=== PATIENT | female | born 1990 | race Caucasian/White ===

== ENCOUNTER 2017-04-18 05:00 | Inpatient (IN) | payer BC ==
[~2017-04-18 05:00] MED LIST: Citric Acid/Sodium Citrate Solution 30 ML Cup PO SCH; Lactated Ringers 1,000 ML IV SCH; Metoclopramide 10 MG/2 ML SDV IVPUSH SCH; Oxytocin/Lactated Ringers 10 UNIT/1,000 ML BAG IV SCH; Sodium Chloride 0.9% 10 ML Syringe FLUSH PRN; ceFAZolin 2 GM in Premix Bag 1 BAG IV SCH
[2017-04-18] MEDS ORDERED: Morphine PF 1 MG/ML Amp ONE (06:43)
[2017-04-18] MEDS ORDERED: Bupivacaine 0.5% 30 ML SDV ONE (06:53)
--- NOTE | 2017-04-18 07:16 | PCM.OPNOTE ---
- General Post-Op/Procedure Note Date of Surgery/Procedure: 04/18/17 Operative Procedure(s): Repeat low transverse Findings: Minimal scar tissue between the rectus muscles and the fascia. Thin lower uterine segment noted with minimal scar tissue between the bladder and uterus. Baby girl in a cephalic presentation with APGARS of 8 & 9 and weight of 7 lbs 6 oz. Normal appearance of the uterus, ovaries, and fallopian tubes. Pre Op Diagnosis: History of x2 (very thin JESSIE at time of last c- section). 38 weeks gestation Post-Op Diagnosis: Same Anesthesia Technique: Spinal Primary Surgeon: Kalee Oropeza Secondary Surgeon: Bess Schmid Anesthesia Provider: Bev Monterroso Pathology: Cord blood collected. Placenta discarded. Fluid Replacement, Intraop: 2,500 Output, Urine Amount: 250 EBL in mLs: 600 Complications: None Condition: Good Free Text/Narrative:: The risks, benefits, indications, potential complications, and alternatives were explained to the patient and informed consent obtained. After induction of anesthesia, the patient was placed in a supine position and then draped and prepped in the usual sterile manner. A Pfannenstiel incision was made and carried down through the subcutaneous tissue to the fascia. Fascial incision was made and extended transversely. The fascia was from the underlying rectus tissue superiorly and inferiorly. The peritoneum was identified and entered. Peritoneal incision was extended longitudinally. The utero-vesical peritoneal reflection was incised transversely and the bladder flap was bluntly freed from the lower uterine segment. A low transverse uterine incision was made sharply with a scalpel and extended bluntly in a cephalocaudad direction. A baby girl was delivered from a cephalic presentation with APGARS as above. After the umbilical cord was clamped and cut cord blood was obtained for evaluation. The placenta was removed intact and appeared normal. The uterus was exteriorized and cleared of clots. The uterine outline, tubes and ovaries appeared normal. The uterine incision was closed with running locked sutures of 0 Vicryl. Hemostasis was noted and so second layer closure was deferred. The uterus was then placed back into the abdomen. The infracolic gutters were cleared of blood clots. The fascia was then reapproximated with running sutures of 0 Vicryl. The sucutaneous tissue was irrigated with sterile warm normal saline, hemostasis obtained with cautery. This layer was closed with a running 0 vicryl suture. The skin was reapproximated with running Subcuticular 4-0 monocryl sutures. Instrument, sponge, and needle counts were correct prior the abdominal closure and at the conclusion of the case.
[2017-04-18] MEDS ORDERED: ceFAZolin 1 GM Vial ONE (07:20)
[2017-04-18] MEDS ORDERED: Ketorolac 30 MG/ML SDV ONE (07:20)
[2017-04-18] MEDS ORDERED: Oxytocin 10 Units/1 ML SDV ONE (07:20)
[2017-04-18] MEDS ORDERED: Ondansetron 4 MG/2 ML SDV ONE (07:20)
--- NOTE | 2017-04-18 07:21 | PCM.PREANE ---
Preanesthetic Assessment - Anesthesia/Transfusion/Family Hx Anesthesia History: Prior Anesthesia Without Reaction Family History of Anesthesia Reaction: No Transfusion History: Prior Transfusion Without Reaction - Review of Systems General: No Symptoms Pulmonary: No Symptoms Cardiovascular: No Symptoms Gastrointestinal: No Symptoms Neurological: No Symptoms Other: Reports: None - Physical Assessment NPO Status Date: 04/17/17 NPO Status Time: 18:30 Respiratory Rate: 14 Vital Signs: Last Vital Signs Temp 37.1 C 04/18/17 05:18 Pulse 84 04/18/17 05:18 Resp 14 04/18/17 05:18 BP 116/70 04/18/17 05:18 Pulse Ox Height: 1.57 m Weight: 82.1 kg ASA Class: 2 Mental Status: Alert & Oriented x3 Airway Class: Mallampati = 2 Dentition: Reports: Normal Dentition Thyro-Mental Finger Breadths: 3 Mouth Opening Finger Breadths: 3 ROM/Head Extension: Full Lungs: Clear to Auscultation, Normal Respiratory Effort Cardiovascular: Regular Rate, Regular Rhythm - Lab Values: Laboratory Last Values WBC 9.49 K/mm3 (3.98-10.04) 04/18/17 05:43 RBC 3.94 M/mm3 (3.98-5.22) L 04/18/17 05:43 Hgb 11.8 gm/L (11.2-15.7) 04/18/17 05:43 Hct 35.9 % (34.1-44.9) 04/18/17 05:43 MCV 91.1 fl (79.4-94.8) 04/18/17 05:43 MCH 29.9 pg (25.6-32.2) 04/18/17 05:43 MCHC 32.9 g/dl (32.2-35.5) 04/18/17 05:43 RDW Std Deviation 45.0 fL (36.4-46.3) 04/18/17 05:43 Plt Count 161 K/mm3 (182-369) L 04/18/17 05:43 MPV 10.6 fl (9.4-12.3) 04/18/17 05:43 Neut % (Auto) 68.2 % (34.0-71.1) 04/18/17 05:43 Lymph % (Auto) 23.2 % (19.3-51.7) 04/18/17 05:43 Mcdowell % (Auto) 7.2 % (4.7-12.5) 04/18/17 05:43 Eos % (Auto) 0.5 (0.7-5.8) L 04/18/17 05:43 Baso % (Auto) 0.3 % (0.1-1.2) 04/18/17 05:43 Neut # (Auto) 6.47 K/mm3 (1.56-6.13) H 04/18/17 05:43 Lymph # (Auto) 2.20 K/mm3 (1.18-3.74) 04/18/17 05:43 Mcdowell # (Auto) 0.68 K/mm3 (0.24-0.36) H 04/18/17 05:43 Eos # (Auto) 0.05 K/mm3 (0.04-0.36) 04/18/17 05:43 Baso # (Auto) 0.03 K/mm3 (0.01-0.08) 04/18/17 05:43 Blood Type A POSITIVE 04/18/17 05:43 Gel Antibody Screen Negative 04/18/17 05:43 - Allergies Allergies/Adverse Reactions: Allergies Allergy/AdvReac Type Severity Reaction Status Date / Time No Known Allergies Allergy Verified 04/18/17 05:27 - Blood Blood Available: No Product(s) Available: None - Anesthesia Plan Pre-Op Medication Ordered: Antacids - Acknowledgements Anesthesia Type Planned: Spinal Pt an Appropriate Candidate for the Planned Anesthesia: Yes Alternatives and Risks of Anesthesia Discussed w Pt/Guardian: Yes Pt/Guardian Understands and Agrees with Anesthesia Plan: Yes PreAnesthesia Questionnaire Cardiovascular History: Reports: None Other Cardiovascular History: 4+ bilateral lower extrem. edema thru-out 3 trimester Respiratory History: Reports: None Gastrointestinal History: Reports: GERD Other Gastrointestinal History: TUMS is effective for s/s. 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 Both times required blood transfusion. Musculoskeletal History: Reports: Other (See Below) Other Musculoskeletal History: C/O of low back pain radiating to her coccyx. Recent fall which she was seen in OB for and cleared. Neurological History: Reports: Concussion, Migraines, Other (See Below) Other Neuro History: Had a concussion in her youth. Experienced a severe migraine in May 2016, which was thought to be a CVA, and was flown to [place] for evaluation. Was found not to be a CVA. Uses Imitrex for migraine when not and denies having experienced any migraine MARTINEZ during this . Psychiatric History: Reports: None Hematologic History: Reports: Blood Transfusion(s) Other Hematologic History: Severe PP hemorrhage with her repeat C/S following failed TOLAC in 2015, and in 2013 had hemoperitoneum evacuation post Primary C/ S. Both times required blood transfusion. Immunologic History: Reports: None Dermatologic History: Reports: None - Infectious Disease History Infectious Disease History: Reports: None - Past Surgical History Cardiovascular Surgical History: Reports: None Respiratory Surgical History: Reports: None GI Surgical History: Reports: None Neurological Surgical History: Reports: None Dermatological Surgical History: Reports: None - SUBSTANCE USE Smoking Status *Q: Never Smoker Tobacco Use Within Last Twelve Months: No Second Hand Smoke Exposure: No Recreational Drug Use History: No - CURRENT (IN HOUSE) MEDS Current Meds: Current Medications Citric Acid/Sodium Citrate (Bicitra Solution) 30 ml PO .ONETIME [facility] Cefazolin Sodium/Dextrose 2 gm (/ Premix) 50 mls @ 100 mls/hr IV .ONETIME [facility] Lactated Ringer's (Ringers, Lactated) 1,000 mls @ 125 mls/hr IV ASDIRECTED [facility] Oxytocin/Lactated Ringer's (Pitocin In Lr 10 Units/1,000 Ml) 10 unit in 1,000 mls @ 100 mls/hr IV ASDIRECTED [facility] Metoclopramide HCl (Reglan) 10 mg IVPUSH .ONETIME [facility] Sodium Chloride (Saline Flush) 10 ml FLUSH ASDIRECTED PRN PRN Reason: Keep Vein Open Discontinued Medications Bupivacaine HCl (Marcaine 0.5%) Confirm Administered Dose 30 ml .ROUTE .[facility]-MED ONE Stop: 04/18/17 06:54 Cefazolin Sodium (Ancef) Confirm Administered Dose 2 gm .ROUTE .[facility]-MED ONE Stop: 04/18/17 07:21 Ketorolac Tromethamine (Toradol) Confirm Administered Dose 30 mg .ROUTE .[facility]- MED ONE Stop: 04/18/17 07:21 Morphine Sulfate (Duramorph Pf) Confirm Administered Dose 1 mg .ROUTE .[facility]-MED ONE Stop: 04/18/17 06:44 Ondansetron HCl (Zofran) Confirm Administered Dose 4 mg .ROUTE .[facility]-MED ONE Stop: 04/18/17 07:21 Oxytocin (Pitocin) Confirm Administered Dose 10 unit .ROUTE .[facility]-MED ONE Stop: 04/18/17 07:21
[2017-04-18] MEDS ORDERED: Phenylephrine/Normal Saline 100 MCG/ML 10 ML Syringe ONE (08:12)
[2017-04-18] MEDS ORDERED: ePHEDrine 50 MG/ML SDV ONE (08:34)
[2017-04-18] MEDS ORDERED: Lactated Ringers 1,000 ML ONE ×2 (08:34→11:13)
[2017-04-18] MEDS ORDERED: Ondansetron 4 MG/2 ML SDV IVPUSH PRN (08:58)
[2017-04-18] MEDS ORDERED: diphenhydrAMINE 50 MG/ML SDV IVPUSH PRN ×2 (08:58→10:58)
[2017-04-18] MEDS ORDERED: fentaNYL 100 MCG/2 ML SDV IVPUSH PRN (08:58)
--- NOTE | 2017-04-18 08:58 | PCM.POSTAN ---
POST ANESTHESIA ASSESSMENT - MENTAL STATUS Mental Status: Alert, Oriented - VITAL SIGNS Pulse Rate: 77 SaO2: 100 Resp Rate: 15 Blood Pressure: 98/62 Temperature: 36.4 C - RESPIRATORY Respiratory Status: Respiratory Rate WNL, Airway Patent, O2 Saturation Stable, Supplemental Oxygen - CARDIOVASCULAR CV Status: Pulse Rate WNL, Blood Pressure Stable - GASTROINTESTINAL GI Status: No Symptoms - PAIN Pain Score: 0 - POST OP HYDRATION Hydration Status: Adequate & Stable
[2017-04-18] MEDS ORDERED: Sodium Chloride 0.9% 10 ML Syringe FLUSH PRN (10:58)
[2017-04-18] MEDS ORDERED: Docusate Sodium 100 MG Cap PO PRN (10:58)
[2017-04-18] MEDS ORDERED: Lanolin 100% Cream 7 GM Tube TOP PRN (10:58)
[2017-04-18] MEDS ORDERED: Naloxone 0.4 MG/ML SDV IVPUSH PRN (10:58)
[2017-04-18] MEDS ORDERED: Dextrose 5%-Lactated Ringers 1,000 ML IV SCH (10:58)
[2017-04-18] MEDS ORDERED: Methylergonovine 0.2 MG/1 ML Amp ONE (11:10)
[2017-04-18] MEDS ORDERED: Sodium Chloride 0.9% 1,000 ML ONE (11:15)
[2017-04-18] MEDS ORDERED: Morphine 2 MG/ML Syringe ONE (11:43)
[2017-04-18] MEDS ORDERED: Misoprostol 200 MCG Tab ONE (11:49)
[2017-04-18] MEDS ORDERED: Misoprostol 200 MCG Tab PO STA (11:57)
[2017-04-18] MEDS ORDERED: ceFAZolin 1 GM in Premix Bag 1 BAG IV ONE (11:57)
--- NOTE | 2017-04-18 11:58 | PCM.SN ---
- Free Text/Narrative Note: 1130 Called by nursing at 1110 due to large amount of bleeding with fundal massage. Up to that time bleeding had been scant. With this bleeding episode patient dropped BP to 80/40's and feeling symptomatic. Presented immediately to L&D. Nursing working on 2nd IV site and hanging 1L of LR. Patient started on 2nd bag of pitocin and IM methergine ordered. Several sweeps of the lower uterine segment showed a moderate amount of clot. Cervix only about 3-4 cm dilated. Patient given dose of Ancef for this exploration and also 2 mg of IV morphine to aid in discomfort. Still with a small amount of clot and so given an additional 600 mcg of buccal cytotec. Eventually bleeding did respond to these interventions. Plan for q4 hour IM methergine. Labs ordered now. As long as stable will repeat again in AM. Laboratory Last Values WBC 18.05 K/mm3 (3.98-10.04) H 04/18/17 11:25 RBC 3.08 M/mm3 (3.98-5.22) L 04/18/17 11:25 Hgb 9.3 gm/L (11.2-15.7) L 04/18/17 11:25 Hct 28.6 % (34.1-44.9) L 04/18/17 11:25 MCV 92.9 fl (79.4-94.8) 04/18/17 11:25 MCH 30.2 pg (25.6-32.2) 04/18/17 11:25 MCHC 32.5 g/dl (32.2-35.5) 04/18/17 11:25 RDW Std Deviation 45.0 fL (36.4-46.3) 04/18/17 11:25 Plt Count 167 K/mm3 (182-369) L 04/18/17 11:25 MPV 10.9 fl (9.4-12.3) 04/18/17 11:25 Neut % (Auto) 80.7 % (34.0-71.1) H 04/18/17 11:25 Lymph % (Auto) 13.4 % (19.3-51.7) L 04/18/17 11:25 Sterling % (Auto) 5.5 % (4.7-12.5) 04/18/17 11:25 Eos % (Auto) 0.1 (0.7-5.8) L 04/18/17 11:25 Baso % (Auto) 0.1 % (0.1-1.2) 04/18/17 11:25 Neut # (Auto) 14.57 K/mm3 (1.56-6.13) H 04/18/17 11:25 Lymph # (Auto) 2.42 K/mm3 (1.18-3.74) 04/18/17 11:25 Sterling # (Auto) 1.00 K/mm3 (0.24-0.36) H 04/18/17 11:25 Eos # (Auto) 0.01 K/mm3 (0.04-0.36) L 04/18/17 11:25 Baso # (Auto) 0.01 K/mm3 (0.01-0.08) 04/18/17 11:25 PT 10.7 SECONDS (8.0-13.0) 04/18/17 11:25 INR 0.98 04/18/17 11:25 APTT 25 SECONDS (22-36) 04/18/17 11:25 Fibrinogen 208.5 mg/dL (200-400) 04/18/17 11:25 Blood Type A POSITIVE 04/18/17 05:43 Gel Antibody Screen Negative 04/18/17 05:43
[2017-04-18] MEDS ORDERED: Morphine 2 MG/ML Syringe IVPUSH ONE (12:09)
[2017-04-18] MEDS ORDERED: Ketorolac 30 MG/ML SDV IVPUSH SCH (13:30)
[2017-04-18] MEDS: Methylergonovine 0.2 MG/1 ML Amp IM SCH ×3 (13:31→19:54)
--- NOTE | 2017-04-18 13:31 | PCM48HPAN ---
Post Anesthesia Note - EVALUATION WITHIN 48HRS OF ANESTHETIC Vital Signs in Normal Range: Yes Patient Participated in Evaluation: Yes Respiratory Function Stable: Yes Airway Patent: Yes Cardiovascular Function Stable: Yes Hydration Status Stable: Yes Pain Control Satisfactory: Yes Nausea and Vomiting Control Satisfactory: Yes Mental Status Recovered: Yes
--- NOTE | 2017-04-18 20:04 | PCM.SN ---
- Free Text/Narrative Note: 1400 Called by nursing due to concern for fundal deviation. Bleeding remains scant/ appropriate. Vaginal exam done by me with little if any clot in lower uterine segment. Uterus seems firm and deep in pelvis/below uterus. Patient with excellent UOP since last present. Continue plan as previously outlined. Kalee Oropeza MD
[2017-04-18] MEDS: Simethicone 80 MG Tab.Chew PO PRN (20:10)
--- NOTE | 2017-04-18 20:10 | PCM.SN ---
- Free Text/Narrative Note: 1929 Patient doing well. Was up and walking with nurses at shift change and did well with that. Minimal complaints of dizziness/lightheadedness. Will order CBC in AM. UOP 750 cc/hr. Kalee Oropeza MD
[2017-04-18] MEDS: Acetaminophen/oxyCODONE 325-5 MG Tab PO PRN (21:44)
[2017-04-19] MEDS: Methylergonovine 0.2 MG/1 ML Amp IM SCH ×2 (00:18→04:04)
[2017-04-19] MEDS: Simethicone 80 MG Tab.Chew PO PRN ×4 (04:02→21:47)
[2017-04-19] MEDS: Acetaminophen/oxyCODONE 325-5 MG Tab PO PRN ×5 (04:03→21:50)
--- NOTE | 2017-04-19 07:10 | PCM.PNPP ---
- General Info Date of Service: 04/19/17 Functional Status: Reports: Pain Controlled, Tolerating Diet, Ambulating - Review of Systems General: Reports: No Symptoms Pulmonary: Reports: No Symptoms Cardiovascular: Reports: No Symptoms Gastrointestinal: Reports: Abdominal Pain Genitourinary: Reports: No Symptoms Musculoskeletal: Reports: No Symptoms Neurological: Reports: No Symptoms - Patient Data Vital Signs - Most Recent: Last Vital Signs Temp 36.8 C 04/19/17 00:10 Pulse 88 04/19/17 00:10 Resp 14 04/19/17 03:00 BP 108/54 L 04/19/17 00:10 Pulse Ox 98 04/19/17 03:00 Weight - Most Recent: 82.1 kg I&O - Last 24 Hours: Intake & Output 04/18/17 04/19/17 04/19/17 22:59 06:59 14:59 Intake Total 2500 Output Total 2035 900 Balance 465 -900 Lab Results - Last 24 Hours: Laboratory Results - last 24 hr 04/18/17 04/18/17 04/19/17 Range/Units 11:25 11:25 06:15 WBC 18.05 H 12.61 H (3.98-10.04) K/mm3 RBC 3.08 L 2.69 L (3.98-5.22) M/mm3 Hgb 9.3 L 8.1 L (11.2-15.7) gm/L Hct 28.6 L 25.4 L (34.1-44.9) % MCV 92.9 94.4 (79.4-94.8) fl MCH 30.2 30.1 (25.6-32.2) pg MCHC 32.5 31.9 L (32.2-35.5) g/dl RDW Std Deviation 45.0 46.3 (36.4-46.3) fL Plt Count 167 L 131 L (182-369) K/mm3 MPV 10.9 11.1 (9.4-12.3) fl Neut % (Auto) 80.7 H (34.0-71.1) % Lymph % (Auto) 13.4 L (19.3-51.7) % Angelina % (Auto) 5.5 (4.7-12.5) % Eos % (Auto) 0.1 L (0.7-5.8) Baso % (Auto) 0.1 (0.1-1.2) % Neut # (Auto) 14.57 H (1.56-6.13) K/mm3 Lymph # (Auto) 2.42 (1.18-3.74) K/mm3 Angelina # (Auto) 1.00 H (0.24-0.36) K/mm3 Eos # (Auto) 0.01 L (0.04-0.36) K/mm3 Baso # (Auto) 0.01 (0.01-0.08) K/mm3 PT 10.7 (8.0-13.0) SECONDS INR 0.98 APTT 25 (22-36) SECONDS Fibrinogen 208.5 (200-400) mg/dL Med Orders - Current: Current Medications Diphenhydramine HCl (Benadryl) 25 mg IVPUSH Q6H PRN PRN Reason: itching Diphenhydramine HCl (Benadryl) 25 mg IVPUSH Q6H PRN PRN Reason: Itching or Nausea Docusate Sodium (Colace) 100 mg PO Q12H PRN PRN Reason: Constipation Emollient Ointment (Lansinoh Hpa) 0 gm TOP ASDIRECTED PRN PRN Reason: Sore Nipples Fentanyl (Sublimaze) 50 mcg IVPUSH Q5M PRN PRN Reason: pain Naloxone HCl (Narcan) 0.1 mg IVPUSH SEECOMMENT PRN PRN Reason: Respiratory Depression Ondansetron HCl (Zofran) 4 mg IVPUSH ONETIME PRN PRN Reason: Nausea/Vomiting Oxycodone/Acetaminophen (Percocet 325-5 Mg) 2 tab PO Q4H PRN PRN Reason: Pain (moderate 4-6) Last Admin: 04/19/17 04:03 Dose: 2 tab Simethicone (Simethicone) 80 mg PO Q4H PRN PRN Reason: Gas Last Admin: 04/19/17 04:02 Dose: 80 mg Sodium Chloride (Saline Flush) 10 ml FLUSH ASDIRECTED PRN PRN Reason: Keep Vein Open Discontinued Medications Bupivacaine HCl (Marcaine 0.5%) Confirm Administered Dose 30 ml .ROUTE .STK-MED ONE Stop: 04/18/17 06:54 Cefazolin Sodium (Ancef) Confirm Administered Dose 2 gm .ROUTE .[facility]-MED ONE Stop: 04/18/17 07:21 Citric Acid/Sodium Citrate (Bicitra Solution) 30 ml PO .[facility] Last Admin: 04/18/17 07:30 Dose: 30 ml Ephedrine Sulfate (Ephedrine Sulfate) Confirm Administered Dose 50 mg .ROUTE .[facility] ONE Stop: 04/18/17 08:35 Cefazolin Sodium/Dextrose 2 gm (/ Premix) 50 mls @ 100 mls/hr IV .ONETIME [facility] Lactated Ringer's (Ringers, Lactated) 1,000 mls @ 125 mls/hr IV ASDIRECTED [facility] Oxytocin/Lactated Ringer's (Pitocin In Lr 10 Units/1,000 Ml) 10 unit in 1,000 mls @ 100 mls/hr IV ASDIRECTED [facility] Last Admin: 04/18/17 11:00 Dose: 100 mls/hr Lactated Ringer's (Ringers, Lactated) Confirm Administered Dose 1,000 mls @ as directed .ROUTE .[facility] ONE Stop: 04/18/17 08:35 Dextrose/Lactated Ringer's (Dextrose 5%-Lactated Ringers) 1,000 mls @ 125 mls/ hr IV ASDIRECTED [facility] Stop: 04/18/17 18:57 Last Admin: 04/18/17 13:25 Dose: 125 mls/hr Lactated Ringer's (Ringers, Lactated) Confirm Administered Dose 1,000 mls @ as directed .ROUTE .[facility] ONE Stop: 04/18/17 11:14 Last Admin: 04/18/17 11:15 Dose: 1,000 ml Sodium Chloride (Normal Saline) Confirm Administered Dose 1,000 mls @ as directed .ROUTE .[facility]-MED ONE Stop: 04/18/17 11:16 Last Admin: 04/18/17 15:31 Dose: 1,000 ml Cefazolin Sodium/Dextrose 1 gm (/ Premix) 50 mls @ 100 mls/hr IV ONETIME ONE Stop: 04/18/17 12:26 Last Admin: 04/18/17 12:07 Dose: 100 mls/hr Cefazolin Sodium/Dextrose (Ancef) Confirm Administered Dose 50 mls @ as directed .ROUTE .[facility] ONE Stop: 04/18/17 11:56 Last Admin: 04/18/17 12:16 Dose: Not Given Ibuprofen (Motrin) 600 mg PO Q6H PRN PRN Reason: mild pain or fever Ketorolac Tromethamine (Toradol) Confirm Administered Dose 30 mg .ROUTE .[facility]- MED ONE Stop: 04/18/17 07:21 Ketorolac Tromethamine (Toradol) 30 mg IVPUSH Q6H [facility] Stop: 04/19/17 01:31 Methylergonovine Maleate (Methergine) Confirm Administered Dose 0.2 mg .ROUTE .STK-MED ONE Stop: 04/18/17 11:11 Last Admin: 04/18/17 11:15 Dose: 0.2 mg Methylergonovine Maleate (Methergine) 0.2 mg IM Q4H [facility] Stop: 04/19/17 08:01 Last Admin: 04/19/17 04:04 Dose: 0.2 mg Metoclopramide HCl (Reglan) 10 mg IVPUSH .ONETIME [facility] Last Admin: 04/18/17 07:31 Dose: 10 mg Misoprostol (Cytotec) Confirm Administered Dose 600 mcg .ROUTE .STK-MED ONE Stop: 04/18/17 11:50 Last Admin: 04/18/17 11:52 Dose: 600 mcg Misoprostol (Cytotec) 600 mcg PO NOW STA Stop: 04/18/17 11:58 Last Admin: 04/18/17 12:15 Dose: Not Given Morphine Sulfate (Duramorph Pf) Confirm Administered Dose 1 mg .ROUTE .STK-MED ONE Stop: 04/18/17 06:44 Morphine Sulfate (Morphine) Confirm Administered Dose 2 mg .ROUTE .STK-MED ONE Stop: 04/18/17 11:44 Last Admin: 04/18/17 12:08 Dose: 2 mg Morphine Sulfate (Morphine) 2 mg IVPUSH ONETIME ONE Stop: 04/18/17 12:10 Last Admin: 04/18/17 13:32 Dose: Not Given Ondansetron HCl (Zofran) Confirm Administered Dose 4 mg .ROUTE .STK-MED ONE Stop: 04/18/17 07:21 Oxytocin (Pitocin) Confirm Administered Dose 10 unit .ROUTE .STK-MED ONE Stop: 04/18/17 07:21 Phenylephrine HCl (Phenylephrine In Ns 100 Mcg/Ml) Confirm Administered Dose 1 mg .ROUTE .STK-MED ONE Stop: 04/18/17 08:13 Phytonadione (Aquamephyton) Confirm Administered Dose 1 mg .ROUTE .STK-MED ONE Stop: 04/18/17 07:14 Last Admin: 04/18/17 17:17 Dose: Not Given Sodium Chloride (Saline Flush) 10 ml FLUSH ASDIRECTED PRN PRN Reason: Keep Vein Open - Infant Interaction Infant Disposition, : [place] in Room with Family Infant Interaction: Holding Infant Feeding: Breastfed ; Nursed Well Support Person: - Recovery Exam Fundal Tone: Firm Fundal Level: 1 Fingerbreadths Below Umbilicus Fundal Placement: Midline Lochia Amount: Small Lochia Color: Rubra/Red Perineum Description: Intact, Minimal Bruising/Swelling Episiotomy/Laceration: None Bladder Status: Indwelling Catheter in Place Urinary Elimination: Indwelling Catheter - Exam General: Alert, Oriented, Cooperative Lungs: Clear to Auscultation, Normal Respiratory Effort Cardiovascular: Regular Rate, Regular Rhythm GI/Abdominal Exam: Soft, Tender (appropriate) Extremities: Normal Inspection Skin: Warm, Dry, Intact Wound/Incisions: Dressing Dry and Intact - Problem List & Annotations (1) History of SNOMED Code(s): 312897203 Code(s): Z98.891 - HISTORY OF UTERINE SCAR FROM PREVIOUS SURGERY Status: Acute Current Visit: Yes (2) S/P repeat low transverse SNOMED Code(s): 168315083, 726206127, 652506750 Code(s): Z98.891 - HISTORY OF UTERINE SCAR FROM PREVIOUS SURGERY Status: Acute Current Visit: Yes (3) Delayed hemorrhage SNOMED Code(s): 63791388 Code(s): O72.2 - DELAYED AND SECONDARY HEMORRHAGE Status: Acute Current Visit: Yes - Problem List Review Problem List Initiated/Reviewed/Updated: Yes - My Orders Last 24 Hours: My Active Orders 04/18/17 10:58 Activity as Tolerated [RC] .Routine Antiembolic Devices [RC] PER UNIT ROUTINE Communication Order [RC] PER UNIT ROUTINE Communication Order [RC] PER UNIT ROUTINE Intake and Output [RC] Q4H May Shower [RC] PER UNIT ROUTINE Notify Provider Intake and Out [RC] ASDIRECTED Vital Signs [RC] Q1HR Acetaminophen/oxyCODONE [Percocet 325-5 MG] 2 tab PO Q4H PRN Docusate Sodium [Colace] 100 mg PO Q12H PRN Lanolin [Lansinoh HPA] See Dose Instructions TOP ASDIRECTED PRN Naloxone [Narcan] 0.1 mg IVPUSH SEECOMMENT PRN Sodium Chloride 0.9% [Saline Flush] 10 ml FLUSH ASDIRECTED PRN diphenhydrAMINE [Benadryl] 25 mg IVPUSH Q6H PRN Assess Lochia [WOMSER] Per Unit Routine Assess Uterine Involution [WOMSER] Per Unit Routine Breast Pump [WOMSER] Per Unit Routine Heat Therapy [OM.PC] Per Unit Routine Saline Lock Insert [OM.PC] Routine Sequential Compression Device [OM.PC] Per Unit Routine 04/18/17 19:57 Simethicone 80 mg PO Q4H PRN 04/18/17 Breakfast Regular Diet [DIET] 04/19/17 08:52 Urinary Catheter Removal [RC] Per Unit Routine - Assessment Assessment:: 26 y/o G6 now [id number] POD#1 from [facility] at 38 0/7 wks - Plan Plan:: Post op * hemorrhage yesterday about 4 hours after delivery. Blood count 8.1 today. S/p 20 hours of methergine. Will continue to monitor closely. * Remove elder this AM * Routine cares * Encourage breast feeding * Discharge pending clinic course
[2017-04-19] MEDS ORDERED: Ibuprofen 600 MG Tab PO PRN (07:30)
--- NOTE | 2017-04-19 08:56 | PCM48HPAN ---
Post Anesthesia Note - EVALUATION WITHIN 48HRS OF ANESTHETIC Vital Signs in Normal Range: Yes Patient Participated in Evaluation: Yes Respiratory Function Stable: Yes Airway Patent: Yes Cardiovascular Function Stable: Yes Hydration Status Stable: Yes Pain Control Satisfactory: Yes Nausea and Vomiting Control Satisfactory: Yes Mental Status Recovered: Yes - COMMENTS/OBSERVATIONS Free Text/Narrative:: Patient presents with some pallor and c/o referring shoulder pain. Otherwise stabilizing well and resting comfortably.
[2017-04-19] MEDS: Ibuprofen 600 MG Tab PO PRN (16:24)
[2017-04-20] MEDS: Ibuprofen 600 MG Tab PO PRN (01:32)
[2017-04-20] MEDS: Simethicone 80 MG Tab.Chew PO PRN ×2 (06:36→10:36)
[2017-04-20] MEDS: Acetaminophen/oxyCODONE 325-5 MG Tab PO PRN ×2 (06:37→10:36)
--- NOTE | 2017-04-20 07:21 | PCM.PNPP ---
- General Info Date of Service: 04/20/17 Functional Status: Reports: Pain Controlled, Tolerating Diet, Ambulating, Urinating - Review of Systems General: Reports: No Symptoms Pulmonary: Reports: No Symptoms Cardiovascular: Reports: No Symptoms Gastrointestinal: Reports: Abdominal Pain (managed with medications ) Genitourinary: Reports: No Symptoms Musculoskeletal: Reports: Shoulder Pain (right side) Neurological: Reports: No Symptoms - Patient Data Vital Signs - Most Recent: Last Vital Signs Temp 36.3 C 04/20/17 04:00 Pulse 80 04/20/17 04:00 Resp 15 04/20/17 04:00 BP 97/52 L 04/20/17 04:00 Pulse Ox 99 04/20/17 04:00 Weight - Most Recent: 82.1 kg I&O - Last 24 Hours: Intake & Output 04/19/17 04/20/17 04/20/17 22:59 06:59 14:59 Intake Total 300 Output Total 1050 Balance -750 Med Orders - Current: Current Medications Diphenhydramine HCl (Benadryl) 25 mg IVPUSH Q6H PRN PRN Reason: itching Diphenhydramine HCl (Benadryl) 25 mg IVPUSH Q6H PRN PRN Reason: Itching or Nausea Docusate Sodium (Colace) 100 mg PO Q12H PRN PRN Reason: Constipation Last Admin: 04/19/17 08:18 Dose: 100 mg Emollient Ointment (Lansinoh Hpa) 0 gm TOP ASDIRECTED PRN PRN Reason: Sore Nipples Fentanyl (Sublimaze) 50 mcg IVPUSH Q5M PRN PRN Reason: pain Ibuprofen (Motrin) 600 mg PO Q6H PRN PRN Reason: Pain Last Admin: 04/20/17 01:32 Dose: 600 mg Naloxone HCl (Narcan) 0.1 mg IVPUSH SEECOMMENT PRN PRN Reason: Respiratory Depression Ondansetron HCl (Zofran) 4 mg IVPUSH ONETIME PRN PRN Reason: Nausea/Vomiting Oxycodone/Acetaminophen (Percocet 325-5 Mg) 2 tab PO Q4H PRN PRN Reason: Pain (moderate 4-6) Last Admin: 04/20/17 06:37 Dose: 2 tab Simethicone (Simethicone) 80 mg PO Q4H PRN PRN Reason: Gas Last Admin: 04/20/17 06:36 Dose: 80 mg Sodium Chloride (Saline Flush) 10 ml FLUSH ASDIRECTED PRN PRN Reason: Keep Vein Open Discontinued Medications Bupivacaine HCl (Marcaine 0.5%) Confirm Administered Dose 30 ml .ROUTE .[facility] ONE Stop: 04/18/17 06:54 Cefazolin Sodium (Ancef) Confirm Administered Dose 2 gm .ROUTE .[facility] ONE Stop: 04/18/17 07:21 Citric Acid/Sodium Citrate (Bicitra Solution) 30 ml PO .ONETIME [facility] Last Admin: 04/18/17 07:30 Dose: 30 ml Ephedrine Sulfate (Ephedrine Sulfate) Confirm Administered Dose 50 mg .ROUTE .[facility] ONE Stop: 04/18/17 08:35 Cefazolin Sodium/Dextrose 2 gm (/ Premix) 50 mls @ 100 mls/hr IV .ONETIME [facility] Lactated Ringer's (Ringers, Lactated) 1,000 mls @ 125 mls/hr IV ASDIRECTED [facility] Oxytocin/Lactated Ringer's (Pitocin In Lr 10 Units/1,000 Ml) 10 unit in 1,000 mls @ 100 mls/hr IV ASDIRECTED [facility] Last Admin: 04/18/17 11:00 Dose: 100 mls/hr Lactated Ringer's (Ringers, Lactated) Confirm Administered Dose 1,000 mls @ as directed .ROUTE .[facility] ONE Stop: 04/18/17 08:35 Dextrose/Lactated Ringer's (Dextrose 5%-Lactated Ringers) 1,000 mls @ 125 mls/ hr IV ASDIRECTED [facility] Stop: 04/18/17 18:57 Last Admin: 04/18/17 13:25 Dose: 125 mls/hr Lactated Ringer's (Ringers, Lactated) Confirm Administered Dose 1,000 mls @ as directed .ROUTE .[facility] ONE Stop: 04/18/17 11:14 Last Admin: 04/18/17 11:15 Dose: 1,000 ml Sodium Chloride (Normal Saline) Confirm Administered Dose 1,000 mls @ as directed .ROUTE .[facility] ONE Stop: 04/18/17 11:16 Last Admin: 02/05/18 15:31 Dose: 1,000 ml Cefazolin Sodium/Dextrose 1 gm (/ Premix) 50 mls @ 100 mls/hr IV ONETIME ONE Stop: 04/18/17 12:26 Last Admin: 04/18/17 12:07 Dose: 100 mls/hr Cefazolin Sodium/Dextrose (Ancef) Confirm Administered Dose 50 mls @ as directed .ROUTE .[facility] ONE Stop: 04/18/17 11:56 Last Admin: 04/18/17 12:16 Dose: Not Given Ibuprofen (Motrin) 600 mg PO Q6H PRN PRN Reason: mild pain or fever Ketorolac Tromethamine (Toradol) Confirm Administered Dose 30 mg .ROUTE .[facility] ONE Stop: 04/18/17 07:21 Ketorolac Tromethamine (Toradol) 30 mg IVPUSH Q6H [facility] Stop: 04/19/17 01:31 Methylergonovine Maleate (Methergine) Confirm Administered Dose 0.2 mg .ROUTE .[facility] ONE Stop: 04/18/17 11:11 Last Admin: 04/18/17 11:15 Dose: 0.2 mg Methylergonovine Maleate (Methergine) 0.2 mg IM Q4H [facility] Stop: 04/19/17 08:01 Last Admin: 04/19/17 04:04 Dose: 0.2 mg Metoclopramide HCl (Reglan) 10 mg IVPUSH .ONETIME [facility] Last Admin: 04/18/17 07:31 Dose: 10 mg Misoprostol (Cytotec) Confirm Administered Dose 600 mcg .ROUTE .[facility] ONE Stop: 04/18/17 11:50 Last Admin: 04/18/17 11:52 Dose: 600 mcg Misoprostol (Cytotec) 600 mcg PO NOW STA Stop: 04/18/17 11:58 Last Admin: 04/18/17 12:15 Dose: Not Given Morphine Sulfate (Duramorph Pf) Confirm Administered Dose 1 mg .ROUTE .[facility] ONE Stop: 04/18/17 06:44 Morphine Sulfate (Morphine) Confirm Administered Dose 2 mg .ROUTE .[facility] ONE Stop: 04/18/17 11:44 Last Admin: 04/18/17 12:08 Dose: 2 mg Morphine Sulfate (Morphine) 2 mg IVPUSH ONETIME ONE Stop: 04/18/17 12:10 Last Admin: 04/18/17 13:32 Dose: Not Given Ondansetron HCl (Zofran) Confirm Administered Dose 4 mg .ROUTE .[facility] ONE Stop: 04/18/17 07:21 Oxytocin (Pitocin) Confirm Administered Dose 10 unit .ROUTE .[facility] ONE Stop: 04/18/17 07:21 Phenylephrine HCl (Phenylephrine In Ns 100 Mcg/Ml) Confirm Administered Dose 1 mg .ROUTE .[facility] ONE Stop: 04/18/17 08:13 Phytonadione (Aquamephyton) Confirm Administered Dose 1 mg .ROUTE .[facility] ONE Stop: 04/18/17 07:14 Last Admin: 04/18/17 17:17 Dose: Not Given Sodium Chloride (Saline Flush) 10 ml FLUSH ASDIRECTED PRN PRN Reason: Keep Vein Open - Infant Interaction Disposition, : Quail in Room with Family Interaction: Holding Infant Feeding: Breastfed ; Nursed Well Support Person: - Recovery Exam Fundal Tone: Firm Fundal Level: At Umbilicus Fundal Placement: Midline Lochia Amount: Small, Moderate Lochia Color: Rubra/Red Perineum Description: Intact, Minimal Bruising/Swelling Episiotomy/Laceration: None Bladder Status: Voiding Urinary Elimination: Voided - Exam General: Alert, Oriented, Cooperative Lungs: Clear to Auscultation, Normal Respiratory Effort Cardiovascular: Regular Rate, Regular Rhythm GI/Abdominal Exam: Soft, Tender (appropriate post op) Extremities: Normal Inspection Skin: Warm, Dry, Intact - Problem List & Annotations (1) History of SNOMED Code(s): 982157845 Code(s): Z98.891 - HISTORY OF UTERINE SCAR FROM PREVIOUS SURGERY Status: Acute (2) S/P repeat low transverse SNOMED Code(s): 923609560, 425243799, 472167889 Code(s): Z98.891 - HISTORY OF UTERINE SCAR FROM PREVIOUS SURGERY Status: Acute (3) Delayed hemorrhage SNOMED Code(s): 94789951 Code(s): O72.2 - DELAYED AND SECONDARY HEMORRHAGE Status: Acute - Problem List Review Problem List Initiated/Reviewed/Updated: Yes - My Orders Last 24 Hours: My Active Orders 04/19/17 15:42 Ibuprofen [Motrin] 600 mg PO Q6H PRN - Assessment Assessment:: 26 y/o G6 now P3033 POD#2 from RLTCS at 38 0/7 wks - Plan Plan:: Post op * Routine cares * Encourage breast feeding * Discharge home today per patient preference
--- NOTE | 2017-04-20 07:26 | PCM.DCSUM1 ---
Discharge Summary - Discharge Data Discharge Date: 04/20/17 Discharge Disposition: Home, Self-Care 01 Condition: Good - Discharge Diagnosis/Problem(s) (1) History of SNOMED Code(s): 321005647 ICD Code: Z98.891 - HISTORY OF UTERINE SCAR FROM PREVIOUS SURGERY Status: Acute (2) S/P repeat low transverse SNOMED Code(s): 433895444, 923423504, 627195664 ICD Code: Z98.891 - HISTORY OF UTERINE SCAR FROM PREVIOUS SURGERY Status: Acute (3) Delayed hemorrhage SNOMED Code(s): 11869304 ICD Code: O72.2 - DELAYED AND SECONDARY HEMORRHAGE Status: Acute - Patient Summary/Data Operative Procedure(s) Performed: Repeat low transverse Complications: None Consults: None Recommended Follow-up Testing/Procedures: Follow up in 1-2 weeks for incision check Hospital Course: Patient is a 26 y/o who presented at 38 weeks for planned RLTCS due to findings of thin JESSIE and failed at time of last delivery. was uncomplicated. About 6 hours post op patient did have a significant delayed hemorrhage requiring additional uterotonic medications including initiation of methergine for 24 hours. After this she did well. Blood count did drop, but only to ~8 and patient tolerated well. She was subsequently discharged home on POD#2 - Patient Instructions Diet: Regular Diet as Tolerated Activity: No Lifting Over 10 Pounds Driving: Do Not Drive (While taking narcotics ) Showering/Bathing: May Shower, No Tub Bathing/Swimming Wound/Incision Care: Keep Operative Site/Wound Site Clean and Dry Notify Provider of: Fever, Increased Pain, Swelling and Redness, Drainage, Nausea and/or Vomiting - Discharge Plan Prescriptions/Med Rec: Acetaminophen/oxyCODONE [Percocet 325-5 MG] 2 tab PO Q4H PRN #25 tablet PRN Reason: Pain (Moderate 4-6) Home Medications: Home Meds Acetaminophen/oxyCODONE [Percocet 325-5 MG] 2 tab PO Q4H PRN #25 tablet [Rx] Docusate Sodium [Colace] 100 mg PO Q12H PRN cap 04/20/17 [Rx] Ibuprofen [IJD: Ibuprofen] 600 mg PO Q6H PRN tablet 04/20/17 [Rx] Simethicone 80 mg PO Q4H PRN tab.chew 04/20/17 [Rx] Patient Handouts: Care After Delivery Referrals: Kalee Oropeza MD [Physician] - (1-2 weeks for post op check ) - Discharge Summary/Plan Comment DC Time >30 min.: No - Patient Data Vitals - Most Recent: Last Vital Signs Temp 36.3 C 04/20/17 04:00 Pulse 80 04/20/17 04:00 Resp 15 04/20/17 04:00 BP 97/52 L 04/20/17 04:00 Pulse Ox 99 04/20/17 04:00 Weight - Most Recent: 82.1 kg I&O - Last 24 hours: Intake & Output 04/19/17 04/20/17 04/20/17 22:59 06:59 14:59 Intake Total 300 Output Total 1050 Balance -750 Med Orders - Current: Current Medications Diphenhydramine HCl (Benadryl) 25 mg IVPUSH Q6H PRN PRN Reason: itching Diphenhydramine HCl (Benadryl) 25 mg IVPUSH Q6H PRN PRN Reason: Itching or Nausea Docusate Sodium (Colace) 100 mg PO Q12H PRN PRN Reason: Constipation Last Admin: 04/19/17 08:18 Dose: 100 mg Emollient Ointment (Lansinoh Hpa) 0 gm TOP ASDIRECTED PRN PRN Reason: Sore Nipples Fentanyl (Sublimaze) 50 mcg IVPUSH Q5M PRN PRN Reason: pain Ibuprofen (Motrin) 600 mg PO Q6H PRN PRN Reason: Pain Last Admin: 04/20/17 01:32 Dose: 600 mg Naloxone HCl (Narcan) 0.1 mg IVPUSH SEECOMMENT PRN PRN Reason: Respiratory Depression Ondansetron HCl (Zofran) 4 mg IVPUSH ONETIME PRN PRN Reason: Nausea/Vomiting Oxycodone/Acetaminophen (Percocet 325-5 Mg) 2 tab PO Q4H PRN PRN Reason: Pain (moderate 4-6) Last Admin: 04/20/17 06:37 Dose: 2 tab Simethicone (Simethicone) 80 mg PO Q4H PRN PRN Reason: Gas Last Admin: 04/20/17 06:36 Dose: 80 mg Sodium Chloride (Saline Flush) 10 ml FLUSH ASDIRECTED PRN PRN Reason: Keep Vein Open Discontinued Medications Bupivacaine HCl (Marcaine 0.5%) Confirm Administered Dose 30 ml .ROUTE .[facility] ONE Stop: 04/18/17 06:54 Cefazolin Sodium (Ancef) Confirm Administered Dose 2 gm .ROUTE .[facility] ONE Stop: 04/18/17 07:21 Citric Acid/Sodium Citrate (Bicitra Solution) 30 ml PO .ONETIME [facility] Last Admin: 04/18/17 07:30 Dose: 30 ml Ephedrine Sulfate (Ephedrine Sulfate) Confirm Administered Dose 50 mg .ROUTE .[facility] ONE Stop: 04/18/17 08:35 Cefazolin Sodium/Dextrose 2 gm (/ Premix) 50 mls @ 100 mls/hr IV .ONETIME [facility] Lactated Ringer's (Ringers, Lactated) 1,000 mls @ 125 mls/hr IV ASDIRECTED [facility] Oxytocin/Lactated Ringer's (Pitocin In Lr 10 Units/1,000 Ml) 10 unit in 1,000 mls @ 100 mls/hr IV ASDIRECTED [facility] Last Admin: 04/18/17 11:00 Dose: 100 mls/hr Lactated Ringer's (Ringers, Lactated) Confirm Administered Dose 1,000 mls @ as directed .ROUTE .[facility] ONE Stop: 04/18/17 08:35 Dextrose/Lactated Ringer's (Dextrose 5%-Lactated Ringers) 1,000 mls @ 125 mls/ hr IV ASDIRECTED [facility] Stop: 04/18/17 18:57 Last Admin: 04/18/17 13:25 Dose: 125 mls/hr Lactated Ringer's (Ringers, Lactated) Confirm Administered Dose 1,000 mls @ as directed .ROUTE .[facility] ONE Stop: 04/18/17 11:14 Last Admin: 04/18/17 11:15 Dose: 1,000 ml Sodium Chloride (Normal Saline) Confirm Administered Dose 1,000 mls @ as directed .ROUTE .[facility] ONE Stop: 04/18/17 11:16 Last Admin: 04/18/17 15:31 Dose: 1,000 ml Cefazolin Sodium/Dextrose 1 gm (/ Premix) 50 mls @ 100 mls/hr IV ONETIME ONE Stop: 04/18/17 12:26 Last Admin: 04/18/17 12:07 Dose: 100 mls/hr Cefazolin Sodium/Dextrose (Ancef) Confirm Administered Dose 50 mls @ as directed .ROUTE .[facility] ONE Stop: 04/18/17 11:56 Last Admin: 04/18/17 12:16 Dose: Not Given Ibuprofen (Motrin) 600 mg PO Q6H PRN PRN Reason: mild pain or fever Ketorolac Tromethamine (Toradol) Confirm Administered Dose 30 mg .ROUTE .[facility] ONE Stop: 04/18/17 07:21 Ketorolac Tromethamine (Toradol) 30 mg IVPUSH Q6H [facility] Stop: 04/19/17 01:31 Methylergonovine Maleate (Methergine) Confirm Administered Dose 0.2 mg .ROUTE .[facility] ONE Stop: 04/18/17 11:11 Last Admin: 04/18/17 11:15 Dose: 0.2 mg Methylergonovine Maleate (Methergine) 0.2 mg IM Q4H [facility] Stop: 04/19/17 08:01 Last Admin: 04/19/17 04:04 Dose: 0.2 mg Metoclopramide HCl (Reglan) 10 mg IVPUSH .ONETIME [facility] Last Admin: 04/18/17 07:31 Dose: 10 mg Misoprostol (Cytotec) Confirm Administered Dose 600 mcg .ROUTE .[facility] ONE Stop: 04/18/17 11:50 Last Admin: 04/18/17 11:52 Dose: 600 mcg Misoprostol (Cytotec) 600 mcg PO NOW [facility] Stop: 04/18/17 11:58 Last Admin: 04/18/17 12:15 Dose: Not Given Morphine Sulfate (Duramorph Pf) Confirm Administered Dose 1 mg .ROUTE .[facility] ONE Stop: 04/18/17 06:44 Morphine Sulfate (Morphine) Confirm Administered Dose 2 mg .ROUTE .[facility] ONE Stop: 04/18/17 11:44 Last Admin: 04/18/17 12:08 Dose: 2 mg Morphine Sulfate (Morphine) 2 mg IVPUSH ONETIME ONE Stop: 04/18/17 12:10 Last Admin: 04/18/17 13:32 Dose: Not Given Ondansetron HCl (Zofran) Confirm Administered Dose 4 mg .ROUTE .[facility] ONE Stop: 04/18/17 07:21 Oxytocin (Pitocin) Confirm Administered Dose 10 unit .ROUTE .[facility] ONE Stop: 04/18/17 07:21 Phenylephrine HCl (Phenylephrine In Ns 100 Mcg/Ml) Confirm Administered Dose 1 mg .ROUTE .[facility] ONE Stop: 04/18/17 08:13 Phytonadione (Aquamephyton) Confirm Administered Dose 1 mg .ROUTE .[facility] ONE Stop: 04/18/17 07:14 Last Admin: 04/18/17 17:17 Dose: Not Given Sodium Chloride (Saline Flush) 10 ml FLUSH ASDIRECTED PRN PRN Reason: Keep Vein Open *Q Meaningful Use (DIS) - VTE *Q VTE Criteria *Q: - Stroke *Q Stroke Criteria *Q: - AMI *Q AMI Criteria *Q:
[2017-04-20 10:48] VITALS: BP 93/53
== END 2017-04-20 12:20 | disposition home or self-care (01) | DRG 540 ==
LOC: JD.OB 05:00
PROVIDERS: ADMIT Obstetrics & Gynecology; ATTEND Obstetrics & Gynecology
PROC: 10D00Z1 Extraction of Products of Conception, Low, Open Approach (ICD-10-PCS; principal; 2017-04-18)
DX: O34.211 Maternal care for low transverse scar from previous cesarean delivery (principal); N85.8 Other specified noninflammatory disorders of uterus; O72.2 Delayed and secondary postpartum hemorrhage; Z3A.38 38 weeks gestation of pregnancy; Z37.0 Single live birth
CPT/HCPCS: 36415; 85025; 85027; 85384; 85610; 85730; 86850; 86900; 86901; A9270-GY; J0690; J1885; J2210; J2270; J2274; J2405; J2590; J2765; J7040; J7042; J7120

== ENCOUNTER 2020-02-01 17:05 | Emergency (ER) | payer BC ==
[2020-02-01 17:23] VITALS: BP 119/81; PULSE 104
[2020-02-01] MEDS ORDERED: Alum Hydrox/Mag Hydrox/Simeth 30 ML, Lidocaine 2% 15 ML PO ONE ×2 (17:49)
[2020-02-01] MEDS ORDERED: Sucralfate 1 GM Tab PO ONE (18:30)
[2020-02-01] MEDS ORDERED: Magnesium Citrate Solution 296 ML Bottle PO ONE (18:31)
--- NOTE | 2020-02-01 18:44 | EDM.PDOC ---
ED HPI GENERAL MEDICAL PROBLEM - General Chief Complaint: Abdominal Pain Stated Complaint: UPPER ABDOMINAL PAIN/BURNING Time Seen by Provider: 02/01/20 17:36 Source of Information: Reports: Patient, RN Notes Reviewed History Limitations: Reports: No Limitations - History of Present Illness INITIAL COMMENTS - FREE TEXT/NARRATIVE: Patient is a 29-year-old female presenting to the emergency department with complaints of a 1 week history of epigastric burning which occasionally travels up into her midsternal chest, as well as episodes of palpitations, heavy breathing, dizziness, and numbness and tingling in her face and upper extremities. She describes it as a burning in her epigastrium. She has been using large amounts of Rolaids which she states does help briefly, however symptoms return. Not taking a daily PPI or any other medications. She denies any diarrhea associated with this, however does state that she had not had a bowel movement for a few days and that today when she did go it was hard and quite difficult to move. She was seen in the emergency department and we will on 2 occasions for this. She states that she had a work-up including work-up there completed included chest x-ray, CT scan of the head, and lab work, all of which were normal. She received a GI cocktail at that time which did help, however she states that when it wore off the burning resumed. She was not home sent home with any prescriptions. She was told that she was suffering from panic attacks and told to breathe into a brown bag. The second time she was there, she was told that she was having complex migraines and discharged home. Seen in the clinic in [place] prior to coming to the ER. At that time, she was experiencing some significant discomfort in the clinic, therefore she was sent to the ER for evaluation. She has never had an upper endoscopy completed. Abdominal Pain Score (Numeric/FACES): 5 - Related Data Allergies Allergy/AdvReac Type Severity Reaction Status Date / Time No Known Allergies Allergy Verified 02/01/20 17:23 Home Meds: Home Meds Ibuprofen [IJD: Ibuprofen] 600 mg PO Q6H PRN tablet 04/20/17 [Rx] LORazepam [Ativan] 0.5 mg PO Q4H PRN #10 tab 02/01/20 [Rx] Omeprazole 20 mg PO DAILY #30 quique. 02/01/20 [Rx] Sucralfate [Carafate] 1 gm PO QIDACANDBED 14 Days #56 tablet 02/01/20 [Rx] Past Medical History HEENT History: Reports: Other (See Below) Other HEENT History: glasses Cardiovascular History: Reports: None Other Cardiovascular History: 4+ bilateral lower extrem. edema thru-out 3 trimester Respiratory History: Reports: None Gastrointestinal History: Reports: GERD Other Gastrointestinal History: TUMS is effective for s/s. 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 Both times required blood transfusion. Musculoskeletal History: Reports: Other (See Below) Other Musculoskeletal History: C/O of low back pain radiating to her coccyx. Recent fall which she was seen in OB for and cleared. Neurological History: Reports: Concussion, Migraines, Other (See Below) Other Neuro History: Had a concussion in her youth. Experienced a severe migraine in May 2016, which was thought to be a CVA, and was flown to [place] for evaluation. Was found not to be a CVA. Uses Imitrex for migraine when not and denies having experienced any migraine MARTINEZ during this . 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 Both times required blood transfusion. Immunologic History: Reports: None Dermatologic History: Reports: None - Infectious Disease History Infectious Disease History: Reports: None - Past Surgical History Cardiovascular Surgical History: Reports: None Respiratory Surgical History: Reports: None GI Surgical History: Reports: None Neurological Surgical History: Reports: None Dermatological Surgical History: Reports: None Social & Family History - Family History Family Medical History: No Pertinent Family History - Tobacco Use Tobacco Use Status *Q: Never Tobacco User Second Hand Smoke Exposure: No - Caffeine Use Caffeine Use: Reports: Coffee Other Caffeine Use: Occasional drinks containing caffeine - Recreational Drug Use Recreational Drug Use: No ED ROS GENERAL - Review of Systems Review Of Systems: See Below Constitutional: Reports: Decreased Appetite. Denies: Fever, Chills, Weakness, Fatigue HEENT: Reports: No Symptoms Respiratory: Reports: No Symptoms. Denies: Shortness of Breath, Cough Cardiovascular: Reports: No Symptoms Endocrine: Reports: No Symptoms GI/Abdominal: Reports: Abdominal Pain (Gastric) ED EXAM, GI/ABD - Physical Exam Exam: See Below Exam Limited By: No Limitations General Appearance: Alert, WD/WN, No Apparent Distress Respiratory/Chest: No Respiratory Distress, Lungs Clear, Normal Breath Sounds, No Accessory Muscle Use, Chest Non-Tender Cardiovascular: Normal Peripheral Pulses, Regular Rate, Rhythm, No Edema, No Gallop, No JVD, No Murmur, No Rub GI/Abdominal Exam: Normal Bowel Sounds, Soft, No Organomegaly, No Distention, No Abnormal Bruit, No Mass, Pelvis Stable, Tender (Mild epigastric tenderness) Neurological: Alert, Oriented, CN II-XII Intact, Normal Cognition, Normal Gait, Normal Reflexes, No Motor/Sensory Deficits Psychiatric: Normal Affect, Normal Mood Skin Exam: Warm, Dry, Intact, Normal Color, No Rash Course - Vital Signs Last Recorded V/S: Last Vital Signs Temp 96.9 F 02/01/20 17:21 Pulse 104 H 02/01/20 17:21 Resp 15 02/01/20 17:21 BP 119/81 02/01/20 17:21 Pulse Ox 100 02/01/20 17:21 - Orders/Labs/Meds Orders: Active Orders 24 hr Category Date Time Status Abdomen 2V AP Flat Upright [CR] Stat Exams 02/01/20 17:50 Taken Labs: Laboratory Tests 02/01/20 02/01/20 Range/Units 17:55 17:55 WBC 8.29 (3.98-10.04) K/mm3 RBC 4.77 (3.98-5.22) M/mm3 Hgb 14.3 D (11.2-15.7) gm/dl Hct 42.9 (34.1-44.9) % MCV 89.9 D (79.4-94.8) fl MCH 30.0 (25.6-32.2) pg MCHC 33.3 (32.2-35.5) g/dl RDW Std Deviation 40.5 (36.4-46.3) fL Plt Count 198 (182-369) K/mm3 MPV 10.8 (9.4-12.3) fl Neut % (Auto) 76.9 H (34.0-71.1) % Lymph % (Auto) 17.1 L (19.3-51.7) % [place] % (Auto) 5.1 (4.7-12.5) % Eos % (Auto) 0.6 L (0.7-5.8) Baso % (Auto) 0.2 (0.1-1.2) % Neut # (Auto) 6.37 H (1.56-6.13) K/mm3 Lymph # (Auto) 1.42 (1.18-3.74) K/mm3 [place] # (Auto) 0.42 H (0.24-0.36) K/mm3 Eos # (Auto) 0.05 (0.04-0.36) K/mm3 Baso # (Auto) 0.02 (0.01-0.08) K/mm3 Sodium 138 (136-145) mEq/L Potassium 4.2 (3.5-5.1) mEq/L Chloride 103 (98-107) mEq/L Carbon Dioxide 24 (21-32) mEq/L Anion Gap 15.2 H (5-15) BUN 14 (7-18) mg/dL Creatinine 0.9 (0.55-1.02) mg/dL Est Cr Clr Drug Dosing 72.29 mL/min Estimated GFR (MDRD) > 60 (>60) mL/min BUN/Creatinine Ratio 15.6 (14-18) Glucose 99 (74-106) mg/dL Calcium 8.8 (8.5-10.1) mg/dL Magnesium 1.9 (1.8-2.4) mg/dl Total Bilirubin 0.6 (0.2-1.0) mg/dL AST 15 (15-37) U/L ALT 26 (14-59) U/L Alkaline Phosphatase 41 L (46-116) U/L C-Reactive Protein <0.2 (<1.0) mg/dL Total Protein 7.9 (6.4-8.2) g/dl Albumin 4.0 (3.4-5.0) g/dl Globulin 3.9 gm/dL Albumin/Globulin Ratio 1.0 (1-2) Lipase 97 (73-393) U/L Meds: Medications Discontinued Medications Generic Name Dose Route Start Last Admin Trade Name Freq PRN Reason Stop Dose Admin Al Hydroxide/Mg Hydroxide 30 0 ml 02/01/20 17:49 02/01/20 18:08 ml/ Lidocaine HCl 15 ml PO 02/01/20 17:50 45 ml ONETIME ONE Administration Magnesium Citrate 296 ml 02/01/20 18:31 Citrate Of Magnesia PO 02/01/20 18:32 ONETIME ONE Sucralfate 1 gm 02/01/20 18:30 Carafate PO 02/01/20 18:31 ONETIME ONE - Re-Assessments/Exams Free Text/Narrative Re-Assessment/Exam: Patient is a 29-year-old female presenting to the emergency department with complaints of a 1 week history of epigastric burning which has occasional episodes of worsening symptoms with symptoms into her midsternal chest. She has been taking Rolaids which do provide some relief, however it does return thereafter. She has been seen twice in the ER in [place]. She did receive GI cocktail which she states did improve her symptoms, however when it wore off the symptoms returned. She is not currently taking any prescribed medications. Based on her description, I feel she is likely suffering from GERD with some underlying anxiety triggered by the pain. Symptoms are fairly mild at this time. I have ordered CBC, CMP, CRP, lipase, abdomen 2 view flat and upright x- ray, and a GI cocktail. 02/01/20 18:44 Hematology was grossly unremarkable. Lipase is normal. Electrolytes are normal. WBCs are not elevated. Patient did have some improvement in the burning in her epigastrium with a GI cocktail. Abdomen flat and upright does show some increased stool throughout the descending colon and into the rectal vault. Discussed with patient that she is likely suffering from GERD and gastritis. I will start her on Carafate, omeprazole, and Ativan as needed for anxiety. She will be sent home with a bottle of magnesium citrate for constipation. Discussed that she should follow-up with her primary care provider in the clinic next week to discuss ongoing management of her anxiety as well as to recheck symptoms to see how she is doing. Return to ER for wo rsening symptoms. Departure - Departure Time of Disposition: 18:48 Disposition: Home, Self-Care 01 Condition: Good Clinical Impression: GERD (gastroesophageal reflux disease) Qualifiers: Esophagitis presence: esophagitis presence not specified Qualified Code(s): K21.9 - Gastro-esophageal reflux disease without esophagitis - Discharge Information *PRESCRIPTION DRUG MONITORING PROGRAM REVIEWED*: No *COPY OF PRESCRIPTION DRUG MONITORING REPORT IN PATIENT KACI: No Prescriptions: LORazepam [Ativan] 0.5 mg PO Q4H PRN #10 tab PRN Reason: Anxiety Sucralfate [Carafate] 1 gm PO QIDACANDBED 14 Days #56 tablet Omeprazole 20 mg PO DAILY #30 capsule.dr Instructions: Food Choices for Gastroesophageal Reflux Disease, Adult, [id number], Gastroesophageal Reflux Disease, Adult, [id number] Referrals: Cynthia Singletary PA-C [Primary Care Provider] - Additional Instructions: You were seen in the emergency department today for 1 week history of epigastric burning as well as anxiety symptoms. Blood work and an abdomen x-ray. Results your blood work are all found to be normal. X-ray of your abdomen did show some increased stool throughout your colon. You have been sent home with a bottle of magnesium citrate which is a laxative. Drink this entire bottle when you get home. This should produce a number of bowel movements some of which may be loose. You have been started on omeprazole which is an antacid, Carafate to soothe" your stomach, and Ativan to be used as needed for anxiety symptoms. Recommend that you follow a bland diet. Avoid foods that are spicy, acidic, or greasy as this will likely aggravate your symptoms. Follow-up with your primary care provider early next week to discuss ongoing management of your anxiety symptoms and to follow-up on your abdominal pain. Return to ER for worsening symptoms. Sepsis Event Note (ED) - Evaluation Sepsis Screening Result: No Definite Risk - Focused Exam Vital Signs: Vital Signs Temp Pulse Resp BP Pulse Ox 02/01/20 17:21 96.9 F 104 H 15 119/81 100 - My Orders Last 24 Hours: My Active Orders 02/01/20 17:50 Abdomen 2V AP Flat Upright [CR] Stat - Assessment/Plan Last 24 Hours: My Active Orders 02/01/20 17:50 Abdomen 2V AP Flat Upright [CR] Stat
--- NOTE | 2020-02-04 08:37 | CR ---
PROCEDURE INFORMATION: Exam: XR Abdomen, 3 or More Views Exam date and time: 02/01/2020 6:21 PM Age: 29 years old Clinical indication: Abdominal pain; Patient HX: Constipation TECHNIQUE: Imaging protocol: XR of the abdomen. Views: 3 or more views. COMPARISON: CT Abdomen Pelvis w Cont 07/21/2015 3:29 AM FINDINGS: Gastrointestinal tract: Normal. No bowel dilation. Intraperitoneal space: Normal. No free air. Bones/joints: Unremarkable for age. IMPRESSION: No acute findings. Thank you for allowing us to participate in the care of your patient. Dictated and Authenticated by: Luiz Rubio MD 02/01/2020 7:33 PM Central Time ([place] & [place]) REBECCA
== END 2020-02-01 19:26 | disposition home or self-care (01) ==
LOC: JD.ED 17:05
DX: K21.9 Gastro-esophageal reflux disease without esophagitis (principal); Z79.899 Other long term (current) drug therapy
CPT/HCPCS: 36415; 74019; 80053; 83690; 83735; 85025; 86140; 99284; A9270; 99283

== ENCOUNTER 2020-10-25 18:04 | Emergency (ER) | payer BC ==
--- NOTE | 2020-10-25 18:53 | EDM.PDOC ---
<LissyjannaCornelio Galan - Last Filed: 10/25/20 18:55> ED HPI GENERAL MEDICAL PROBLEM - General Chief Complaint: Lower Extremity Injury/Pain Stated Complaint: R LEG PAIN Time Seen by Provider: 10/25/20 18:25 Source of Information: Reports: Patient History Limitations: Reports: No Limitations - History of Present Illness INITIAL COMMENTS - FREE TEXT/NARRATIVE: The patient presents with right leg pain for 3 days. She said most pain is to her medial knee. She also has some pain to the right calf and right lateral ankle. She does not recall injuring her leg in any way. She has no history of DVT or PE. 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 She has no fever, chills, cough, chest pain or shortness of breath. She was at [facility] today and she felt like her heart was racing for a short second. That is gone now. She also feels like her leg is swollen. Onset: Gradual Duration: Day(s): (3) Location: Reports: Lower Extremity, Right Quality: Reports: Sharp Severity: Moderate Improves with: Reports: Immobilization Worsens with: Reports: Movement Context: Denies: Trauma Associated Symptoms: Reports: No Other Symptoms Right Leg Pain Score (Numeric/FACES): 5 - Related Data Allergies Allergy/AdvReac Type Severity Reaction Status Date / Time No Known Allergies Allergy Verified 10/25/20 18:24 Home Meds: Home Meds . [No Known Home Meds] 10/25/20 [History] Past Medical History HEENT History: Reports: Other (See Below) Other HEENT History: glasses Cardiovascular History: Reports: None Other Cardiovascular History: 4+ bilateral lower extrem. edema thru-out 3 trimester Respiratory History: Reports: None Gastrointestinal History: Reports: GERD Other Gastrointestinal History: TUMS is effective for s/s. 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 Both times required blood transfusion. Musculoskeletal History: Reports: Other (See Below) Other Musculoskeletal History: C/O of low back pain radiating to her coccyx. Recent fall which she was seen in OB for and cleared. Neurological History: Reports: Concussion, Migraines, Other (See Below) Other Neuro History: Had a concussion in her youth. Experienced a severe migraine in May 2016, which was thought to be a CVA, and was flown to [place] for evaluation. Was found not to be a CVA. Uses Imitrex for migraines. 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 Both times required blood transfusion. Immunologic History: Reports: None Dermatologic History: Reports: None - Infectious Disease History Infectious Disease History: Reports: None - Past Surgical History Cardiovascular Surgical History: Reports: None Respiratory Surgical History: Reports: None GI Surgical History: Reports: None Neurological Surgical History: Reports: None Dermatological Surgical History: Reports: None Social & Family History - Family History Family Medical History: No Pertinent Family History - Tobacco Use Tobacco Use Status *Q: Never Tobacco User Second Hand Smoke Exposure: No - Caffeine Use Caffeine Use: Reports: Coffee Other Caffeine Use: Occasional drinks containing caffeine - Recreational Drug Use Recreational Drug Use: No Review of Systems - Review of Systems Review Of Systems: See Below Constitutional: Reports: No Symptoms Eyes: Reports: No Symptoms Ears: Reports: No Symptoms Nose: Reports: No Symptoms Mouth/Throat: Reports: No Symptoms Respiratory: Reports: No Symptoms Cardiovascular: Reports: No Symptoms GI/Abdominal: Reports: No Symptoms Genitourinary: Reports: No Symptoms Musculoskeletal: Reports: Other (Right leg pain) ED EXAM, GENERAL - Physical Exam Exam: See Below Exam Limited By: No Limitations General Appearance: Alert, No Apparent Distress Ears: Normal External Exam Nose: Normal Inspection Head: Atraumatic, Normocephalic Neck: Normal Inspection Respiratory/Chest: No Respiratory Distress, Lungs Clear, Normal Breath Sounds Cardiovascular: Regular Rate, Rhythm, No Edema, No Murmur GI/Abdominal: Soft, Non-Tender, No Organomegaly, No Mass Extremities: Other (Mild pain upon palpation to the right medial knee with some edema. Mild pain upon palpation to the right calf. Good sensation and pulses distally.) Course - Re-Assessments/Exams Free Text/Narrative Re-Assessment/Exam: 10/25/20 18:56 I have ordered labs and an US of her right leg. Departure - Departure Disposition: Home, Self-Care 01 Clinical Impression: Right leg pain - Discharge Information Referrals: Cynthia Singletary PA-C [Primary Care Provider] - Mc David MD [Physician] - Forms: ED Department Discharge Additional Instructions: You were seen in the emergency room for 3 days of right knee, calf, and ankle pain. Work-up in the ER included several blood tests and a Doppler ultrasound of your right lower extremity. Your entire work-up was unremarkable, and does not explain the cause of your symptoms. You do not have a blood clot in your right lower extremity. You do not have a blood clot in your lungs. There is no sign of an infection. We recommend you take [id number] ibuprofen, 2 to 3 tablets (400-600 mg) up to every 8 hours, with food, as needed for discomfort. If your symptoms persist, please follow-up with the Orthopedic Surgeon Dr. Mc David, for further evaluation. If any other problems, please do not hesitate to return to the ER. Sepsis Event Note (ED) - Evaluation Sepsis Screening Result: No Definite Risk <Antonio Carter - Last Filed: 10/25/20 21:17> Course - Vital Signs Last Recorded V/S: Last Vital Signs Temp 36.6 C 10/25/20 18:24 Pulse 93 10/25/20 18:24 Resp 16 10/25/20 18:24 BP 121/82 10/25/20 18:24 Pulse Ox 99 10/25/20 18:24 - Orders/Labs/Meds Orders: Active Orders 24 hr Category Date Time Status Cardiac Monitoring [RC] . DIRECTED Care 10/25/20 18:38 Active VL Duplex Lwr Ext Veins Ltd Rt [US] Stat Exams 10/25/20 18:38 Taken Labs: Laboratory Tests 10/25/20 10/25/20 10/25/20 Range/Units 18:50 18:50 18:50 WBC 7.59 (3.98-10.04) K/mm3 RBC 4.41 (3.98-5.22) M/mm3 Hgb 13.5 (11.2-15.7) gm/dl Hct 40.7 (34.1-44.9) % MCV 92.3 (79.4-94.8) fl MCH 30.6 (25.6-32.2) pg MCHC 33.2 (32.2-35.5) g/dl RDW Std Deviation 40.3 (36.4-46.3) fL Plt Count 153 L (182-369) K/mm3 MPV 11.1 (9.4-12.3) fl Neut % (Auto) 57.6 (34.0-71.1) % Lymph % (Auto) 33.6 (19.3-51.7) % [place] % (Auto) 7.2 (4.7-12.5) % Eos % (Auto) 1.1 (0.7-5.8) Baso % (Auto) 0.4 (0.1-1.2) % Neut # (Auto) 4.37 (1.56-6.13) K/mm3 Lymph # (Auto) 2.55 (1.18-3.74) K/mm3 [place] # (Auto) 0.55 H (0.24-0.36) K/mm3 Eos # (Auto) 0.08 (0.04-0.36) K/mm3 Baso # (Auto) 0.03 (0.01-0.08) K/mm3 D-Dimer, Quantitative 0.27 (0.19-0.50) mg/L Sodium 141 (136-145) mEq/L Potassium 3.8 (3.5-5.1) mEq/L Chloride 106 (98-107) mEq/L Carbon Dioxide 27 (21-32) mEq/L Anion Gap 11.8 (5-15) BUN 15 (7-18) mg/dL Creatinine 0.9 (0.55-1.02) mg/dL Est Cr Clr Drug Dosing 71.63 mL/min Estimated GFR (MDRD) > 60 (>60) mL/min BUN/Creatinine Ratio 16.7 (14-18) Glucose 127 H (70-99) mg/dL Calcium 8.5 (8.5-10.1) mg/dL Total Bilirubin 0.2 (0.2-1.0) mg/dL AST 15 (15-37) U/L ALT 27 (14-59) U/L Alkaline Phosphatase 37 L (46-116) U/L C-Reactive Protein <0.2 (<1.0) mg/dL Total Protein 7.4 (6.4-8.2) g/dl Albumin 3.9 (3.4-5.0) g/dl Globulin 3.5 gm/dL Albumin/Globulin Ratio 1.1 (1-2) - Re-Assessments/Exams Free Text/Narrative Re-Assessment/Exam: 10/25/20 20:[address] Tobin. I agree with his history and physical examination as documented. The patient's CBC is unremarkable. Her CMP is remarkable for mild hyperglycemia of 127, with remainder of her CMP being unremarkable. Her CRP is undetectably low. Results of the Doppler ultrasound of her right lower extremity are still pending. Because of the report of brief rapid palpitations, I have ordered a D-dimer. 10/25/20 20:36 Doppler ultrasound of the right lower extremity is read by Mike as "No evidence of right lower extremity deep vein thrombosis." 10/25/20 21:07 The patient's D-dimer is within normal limits at 0.27. 10/25/20 21:14 Test results discussed with the patient and her . As above, today's work-up is entirely unremarkable, and does not explain the cause of her symptoms. I recommended that she take OTC ibuprofen as needed for discomfort, and if her symptoms persist, that she follow-up with Dr. David for further evaluation. She declined an offer for pain medication at this time. Departure - Departure Time of Disposition: 21:15 Condition: Good - Discharge Information *PRESCRIPTION DRUG MONITORING PROGRAM REVIEWED*: Not Applicable *COPY OF PRESCRIPTION DRUG MONITORING REPORT IN PATIENT KACI: Not Applicable Sepsis Event Note (ED) - Focused Exam Vital Signs: Vital Signs Temp Pulse Resp BP Pulse Ox 10/25/20 18:24 36.6 C 93 16 121/82 99
[2020-10-25 21:24] VITALS: BP 108/70; PULSE 76
--- NOTE | 2020-10-26 08:51 | US ---
Right lower extremity deep venous ultrasound: Duplex and color Doppler evaluation was obtained of the right common femoral, proximal greater saphenous, superficial femoral, popliteal, posterior tibial and anterior tibial veins. Left common femoral vein was also evaluated. Comparison: No prior lower extremity imaging is available. Findings: Normal phasic flow, augmentation and compression are seen. Impression: 1. No findings of deep venous thrombosis are seen within the right lower extremity or within the left common femoral vein. Diagnostic code #1 I agree with preliminary report from [facility], finalized on 10/15/20, 9:29 PM CDT, code 1
== END 2020-10-25 21:24 | disposition home or self-care (01) ==
LOC: JD.ED 18:04
DX: M79.604 Pain in right leg (principal)
CPT/HCPCS: 36415; 80053; 85025; 85379; 86140; 93971-26-RT; 93971-RT; 99283; 99284-25